=== PATIENT | female | born 1980 | race Caucasian/White ===

== ENCOUNTER 2024-04-15 21:36 | Emergency (ER) | payer BC, MEDICAID, SELFPAY ==
[2024-04-15 21:55] VITALS: BP 106/74; PULSE 87; RESP 16; TEMP 36.8; O2SAT 97; BMI 31.1
--- NOTE | 2024-04-16 00:12 | ED_ITS ---
Documented by User: PETER Arias 04/16/24 00:56 HPI - Headache General: Chief Complaint: Headache Stated Complaint: headaches Time Seen by Provider: 04/15/24 23:32 History of Present Illness: Patient is a 44-year-old female that presents to the emergency department with complaints of headache. Onset of symptoms approximately 1 month ago and has been working with primary care to try and improve her headaches. Patient notes use of Flexeril and tizanidine which does alter his headache but does not resolve it. Patient is also trialed Excedrin Migraine which has helped but does not resolve. Patient denies fever, chills, chest pain, shortness of breath. Related Data Allergies Allergy/AdvReac Type Severity Reaction Status Date / Time No Known Allergies Allergy Verified 04/15/24 22:03 Review of Systems General: Reports: 10 or more systems reviewed and unremarkable except in HPI and below Physical Exam Const: COMMON NORMALS: no acute distress, patient oriented x3 and alert GENERAL APPEARANCE: cooperative ORIENTATION/CONSCIOUSNESS: Yes awake, Yes oriented to person, Yes oriented to place and Yes oriented to time HENMT: COMMON NORMALS: normocephalic and atraumatic HEAD & SCALP: normocephalic and atraumatic FACE & SINUS: normal facial exam MOUTH: Normal oral and palatal mucosa present THROAT: posterior oropharynx normal Neck/C-Spine: COMMON NORMALS: full ROM GENERAL: Yes normal visual inspection Lymph: LYMPHATIC: no lymphadenopathy noted Chest: COMMONS NORMALS: normal inspection of the chest Breast/axilla inspection: Yes no chest deformity, asymmetry, normal contours, no nodules, masses, tenderness Resp: COMMON NORMALS: normal respiratory effort, No retractions and No use of accessory muscles EFFORT & INSPECTION: Yes able to speak in complete sentences and Yes symmetric chest movement Cardio: COMMON NORMALS: regular rate and Peripheral pulses 2+ throughout RATE: regular rate PERIPHERAL PULSES: Peripheral pulses 2+ throughout GI: COMMON NORMALS: Normal to inspection, nondistended, normoactive bowel sounds present INSPECTION: Yes normal to inspection RECTAL EXAM: deferred Extremity: COMMON NORMALS: normal to inspection GENERAL: Yes normal exam except as noted Neuro: COMMON NORMALS: patient oriented x3 SENSORIUM/ORIENTATION: Yes alert, Yes oriented to person, Yes oriented to place and Yes oriented to time CRANIAL NERVES: Yes CN normal except as noted Psych: COMMON NORMALS: mental status grossly normal, Normal thought process present, cooperative, activity/motor behavior normal, denies homicidal ideation and denies suicidal ideation THOUGHT PROCESS: Normal thought process present Skin: COMMON NORMALS: no rashes or lesions noted, no wounds and turgor normal GENERAL SKIN EXAM: no rashes or lesions noted and turgor normal Course Vital Signs: Vital signs: Vital Signs Temperature 98.3 F 04/15/24 21:55 Pulse Rate 87 04/15/24 21:55 Respiratory Rate 16 04/15/24 21:55 Blood Pressure 106/74 04/15/24 21:55 Pulse Oximetry 97 04/15/24 21:55 Oxygen Delivery Me thod Room Air 04/15/24 21:55 MDM - Headache Medical Decision Making Patient evaluated in the emergency department for complaints of migraine type headache. Has been treated with Flexeril and tizanidine without resolution. She did have some improvement in her headaches. Here in the emergency department she denies any head trauma. Symptoms have been ongoing for the last month. I opted to trial a drug cocktail for pain management that included ketorolac diphenhydramine and dexamethasone. At this time and transitioning care to Dr. Llanes. Patient has been prepped for discharge with headache and follow-up with primary care. However, if something changes or she does not improve she may need further medication management Lab Data Radiology Impressions Head CT 04/16/24 03:08 IMPRESSION: No acute intracranial abnormality. No radiology studies performed this visit Discharge Plan Discharge Patient Disposition: Home Clinical Impression: Headache Migraine Qualifiers: Migraine type: unspecified Status migrainosus presence: with status migrainosus Intractability: intractable Qualified Code(s): G43.911 - Migraine, unspecified, intractable, with status migrainosus Condition: Stable Discharge Orders: Discharge ED (Routine); Ordered 04/16/24 Ordered By: Conor Blanchard Discharge Diet: Advance as tolerated Discharge Activity: Resume usual activity Patient Instructions: Headache - Migraine (Adult), Pain Management Activity Restrictions/Additional Instructions: Please follow-up with your primary care doctor for ongoing headaches. Please return to the emergency department for new, concerning, worsening symptoms Sign Out Sign Out Data: Patient Sign Out occurred on 04/16/24 at 00:58. Patient's care was discussed, and care was transferred from PETER Arias to Juan Llanes MD. 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[employer] Documented by User: Juan Llanes MD 04/16/24 04:35 HPI - Headache General: Chief Complaint: Headache Stated Complaint: headaches Time Seen by Provider: 04/15/24 23:32 Related Data Allergies Allergy/AdvReac Type Severity Reaction Status Date / Time No Known Allergies Allergy Verified 04/15/24 22:03 Course Vital Signs: Vital signs: Vital Signs Temperature 98.3 F 04/15/24 21:55 Pulse Rate 87 04/15/24 21:55 Respiratory Rate 16 04/15/24 21:55 Blood Pressure 106/74 04/15/24 21:55 Pulse Oximetry 97 04/15/24 21:55 Oxygen Delivery Me thod Room Air 04/15/24 21:55 MDM - Headache Medical Decision Making Patient evaluated in the emergency department for complaints of migraine type headache. Has been treated with Flexeril and tizanidine without resolution. She did have some improvement in her headaches. Here in the emergency department she denies any head trauma. Symptoms have been ongoing for the last month. I opted to trial a drug cocktail for pain management that included ketorolac diphenhydramine and dexamethasone. At this time and transitioning care to Dr. Llanes. Patient has been prepped for discharge with headache and follow-up with primary care. However, if something changes or she does not improve she may need further medication management. CT scan done as patient was concerned about this why her headache was so bad. CT scan unremarkable. Given Imitrex and reevaluating prior to discharge. Differential Diagnosis Likely migraine, tension headache, headache and sinusitis Medical Records I reviewed the patient's medical records. Lab Data Radiology Impressions Head CT 04/16/24 03:08 IMPRESSION: No acute intracranial abnormality. All radiology interpretation(s) finalized by discharge ED provider radiology interpretation(s): Personally viewed CT of the head and I see no acute abnormality. Discharge Plan Discharge Patient Disposition: Home Clinical Impression: Headache Migraine Qualifiers: Migraine type: unspecified Status migrainosus presence: with status migrainosus Intractability: intractable Qualified Code(s): G43.911 - Migraine, unspecified, intractable, with status migrainosus Condition: Stable Discharge Orders: Discharge ED (Routine); Ordered 04/16/24 Ordered By: Conor Blanchard Discharge Diet: Advance as tolerated Discharge Activity: Resume usual activity Patient Instructions: Headache - Migraine (Adult), Pain Management Activity Restrictions/Additional Instructions: Please follow-up with your primary care doctor for ongoing headaches. Please return to the emergency department for new, concerning, worsening symptoms Sign Out Sign Out Data: Patient Sign Out occurred on 04/16/24 at 00:58. Patient's care was discussed, and care was transferred from PETER Arias to Juan Llanes MD. Coding Level of Care Code ED Information Security Officer for Arnol Segovia
[2024-04-16] MEDS: ketorolac 60 mg/2 mL INJ IM (00:38)
[2024-04-16] MEDS: dexamethasone 10 mg/mL INJ IM (00:39)
[2024-04-16] MEDS: diphenhydrAMINE 50 mg/mL SDV 1mL IM (00:39)
--- NOTE | 2024-04-16 03:08 | CTR_ITS ---
PROCEDURE INFORMATION: Exam: CT Head Without Contrast Exam date and time: 04/16/2024 3:25 AM Age: 44 years old Clinical indication: Pain; Headache; Patient HX: Severe migraine; Additional info: Severe intractable PRASAD TECHNIQUE: Imaging protocol: Computed tomography of the head without contrast. Radiation optimization: All CT scans at this facility use at least one of these dose optimization techniques: automated exposure control; mA and/or kV adjustment per patient size (includes targeted exams where dose is matched to clinical indication); or iterative reconstruction. COMPARISON: No relevant prior studies available. RADIATION DOSE METRICS: Total DLP (mGy-cm): 992.99 FINDINGS: Brain: Normal. No hemorrhage. Unremarkable white matter. No mass effect. Cerebral ventricles: No ventriculomegaly. Paranasal sinuses: Visualized sinuses are unremarkable. No fluid levels. Mastoid air cells: Visualized mastoid air cells are well aerated. Bones: Unremarkable. No acute fracture. Soft tissues: Unremarkable. CT/CT head wo con* [id number] IMPRESSION: No acute intracranial abnormality.
[2024-04-16] MEDS: SUMAtriptan 6 mg/0.5 mL SDV SUBCUT (03:53)
== END 2024-04-16 04:40 | disposition home or self-care (01) ==
PROVIDERS: Emergency Provider Emergency Medicine
DX: G43.911 Migraine, unspecified, intractable, with status migrainosus (principal)
CPT/HCPCS: 70450; 96372; 99284; J1100; J1200; J1885; J3030

== ENCOUNTER 2024-04-21 16:22 | Emergency (ER) | payer BC, MEDICAID, SELFPAY ==
[2024-04-21 16:29] VITALS: BP 135/89; PULSE 78; RESP 14; TEMP 36.6; O2SAT 98
--- NOTE | 2024-04-21 21:34 | ED_ITS ---
Documented by User: DEDRA Akbar 04/21/24 23:10 HPI - Headache 2 General: Chief Complaint: Headache Stated Complaint: migraines Time Seen by Provider: 04/21/24 20:19 Source: patient Mode of arrival: ambulatory Limitations: no limitations History of Present Illness: Patient is a 44-year-old female who presents to the emergency department for the second time a week for continued headaches. She received cocktail of medications to treat her headache, she states that this worked last time but effects wore off. She also had a head CT that was unremarkable for any acute findings. She states she has not seen primary care in 25 years, however is set to see a new established doctor next Wednesday but wanted to get checked out again because the pain was getting worse. She states that she took a muscle relaxer to try to help her pain, but that this made it much worse. Notes that intermittently over the past year or so she has had intermittent swelling of her forehead, painless, and it goes away on its own. She has never gotten this checked out. She reports currently that the headache is behind her left eye and radiates to the top of her head, has never seen neurology and has no diagnosis of migraine. She does not take any medications. States that she looked up online what to cause the pain, and found that it could be from dental implants of which she had placed within the past few months. No focal neurological deficits, no gait disturbances, no other concerns noted at this time. Her vitals are unremarkable. MD elicited complaint: headache Onset (ago): day(s) Onset description: suddenly Location: left and retro-orbital Severity: similar to previous episodes Exacerbating factors: other (Medication) Relieving factors: nothing Context: occurred at rest Associated symptoms: Reports no associated symptoms; Deny chest pain, fever(s), lightheadedness, nausea, rash or vomiting Treatments prior to arrival: other (Muscle relaxer) Related Data Allergies Allergy/AdvReac Type Severity Reaction Status Date / Time No Known Allergies Allergy Verified 04/21/24 16:38 Review of Systems 2 General: Reports: 10 or more systems reviewed and unremarkable except in HPI and below Const: Denies: fever(s), chills or fatigue Eyes: Denies: change in vision or blurry vision ENMT: Denies: throat pain, ear or mastoid pain or nasal discharge Card: Denies: chest pain, palpitations, swelling of feet/ankles or lightheadedness Resp: Denies: dyspnea, productive cough or wheezing GI: Denies: abdominal pain, nausea, vomiting, diarrhea or constipation : Denies: flank pain, difficulty voiding, dysuria or urinary frequency Musc: Denies: neck pain, back pain or joint pain Skin/Breast: Denies: rash Neuro: Reports: headache(s); Denies: numbness in extremities, weakness in extremities, sensory changes, difficulty walking, dizziness or behavioral changes [facility] ED 2 Female Reproductive History: Date of last menstrual period: 03/22/24 Physical Exam 2 Const: COMMON NORMALS: no acute distress, patient oriented x3 and no limitations GENERAL APPEARANCE: cooperative, well developed and anxious O RIENTATION/CONSCIOUSNESS: Yes awake, Yes oriented to person, Yes oriented to place and Yes oriented to time HENMT: COMMON NORMALS: normocephalic, atraumatic, hearing grossly normal bilaterally and moist oral mucous membranes HEAD & SCALP: normocephalic and atraumatic OTHER: Dental implants without any acute sign of infection. Chronic appearing cystic lesions scattered on patient's scalp Eye: COMMON NORMALS: Equal, round and reactive pupils present, EOMs intact bilaterally and conjunctivae normal CONJUNCTIVA: Yes conjunctivae normal P UPIL: Yes Equal, round and reactive pupils present Neck/C-Spine: COMMON NORMALS: full ROM, supple and no JVD Resp: COMMON NORMALS: normal respiratory effort, No retractions, No use of accessory muscles and clear to auscultation bilaterally AUSCULTATION: clear to auscultation bilaterally Cardio: COMMON NORMALS: no JVD, regular rate, regular rhythm, No clicks present (Cardio), No murmurs present (Cardio) and No rub (Cardio) RATE: r egular rate RHYTHM: regular rhythm GI: COMMON NORMALS: Normal to inspection, nondistended, normoactive bowel sounds present, Soft to palpation and non-tender AUSCULTATION: Yes normoactive bowel sounds PALPATION: Yes Soft to palpation RECTAL EXAM: d eferred Extremity: COMMON NORMALS: normal to inspection, full ROM and capillary refill normal Neuro: COMMON NORMALS: patient oriented x3, CN's II-XII intact bilaterally, moves all extremities, no focal motor deficits and no sensory deficits noted SENSORIUM/ORIENTATION: Yes oriented to person, Yes oriented to place and Yes oriented to time Psych: COMMON NORMALS: mental status grossly normal and Normal thought process present THOUGHT PROCESS: Normal thought process present Skin: COMMON NORMALS: no rashes or lesions noted GENERAL SKIN EXAM: no rashes or lesions noted Course 2 Vital Signs: Vital signs: Vital Signs Temperature 97.9 F 04/21/24 16:29 Pulse Rate 83 04/21/24 23:20 Respiratory Rate 16 04/21/24 22:41 Blood Pressure 127/82 04/21/24 23:20 Pulse Oximetry 97 04/21/24 23:20 Oxygen Delivery Me thod Room Air 04/21/24 22:41 MDM - Headache Medical Decision Making Patient presented with this examiner week for similar headache that she had prior appearance. She wanted medications again, also 1 to make sure there is no infection with blood work. Blood was negative, no need to repeat CT scan as she just had a normal one. Neurologically was intact, will refer her to neurology for further evaluation as she has continued headaches, she may benefit from an MRI. She has follow-up appoint with primary care next week, she is feeling better after medications here and is comfortable with discharge home. Return precautions given. Lab Data 04/21/24 21:56 04/21/24 21:56 Laboratory Results WBC 10.41 10^3/uL (3.29-11.43) 04/21/24 21:56 RBC 4.40 10^6/uL (3.85-5.65) 04/21/24 21:56 Hgb 13.60 g/dL (11.27-16.99) 04/21/24 21:56 Hct 40.3 % (36-47) 04/21/24 21:56 MCV 91.6 fl (85-98) 04/21/24 21:56 MCH 30.9 pg (27-33) 04/21/24 21:56 MCHC 33.7 g/dL (30-55) 04/21/24 21:56 RDW 12.1 % (12.1-15.1) 04/21/24 21:56 Plt Count 237 10^3/cmm (157-399) 04/21/24 21:56 MPV 11.4 fL (7.4-10.4) H 04/21/24 21:56 Neut % (Auto) 60.1 % 04/21/24 21:56 Lymph % (Auto) 30.8 % 04/21/24 21:56 Wolfe % (Auto) 7.3 % 04/21/24 21:56 Eos % (Auto) 1.3 % 04/21/24 21:56 Baso % (Auto) 0.2 % 04/21/24 21:56 Neut # (Auto) 6.25 10^3/uL (1.8-7.7) 04/21/24 21:56 Lymph # (Auto) 3.2 10^3/uL (0.8-4.8) 04/21/24 21:56 Wolfe # (Auto) 0.8 10^3/uL (0.2-0.9) 04/21/24 21:56 Eos # (Auto) 0.1 10^3/uL (0.0-0.8) 04/21/24 21:56 Baso # (Auto) 0.0 10^3/uL (0.0-0.1) 04/21/24 21:56 Nucleated RBC % (auto) 0 % 04/21/24 21:56 Nucleated RBCs # 0.0 /100WBC 04/21/24 21:56 Sodium 138 mmol/L (136-145) 04/21/24 21:56 Potassium 4.3 mmol/L (3.5-5.1) 04/21/24 21:56 Chloride 102 mmol/L (98-107) 04/21/24 21:56 Carbon Dioxide 26 mmol/L (22-29) 04/21/24 21:56 Anion Gap 14.3 (5-19) 04/21/24 21:56 BUN 9 mg/dL (6-20) 04/21/24 21:56 Creatinine 0.6 mg/dL (0.5-0.9) 04/21/24 21:56 GFR Calculation 109.1 mL/min (90-130) 04/21/24 21:56 Glucose 105 mg/dL (65-115) 04/21/24 21:56 Calculated Osmolality 285 mOsm/kg (285-295) 04/21/24 21:56 Calcium 9.7 mg/dL (8.5-10.5) 04/21/24 21:56 Total Bilirubin 0.3 mg/dL (0.15-1.2) 04/21/24 21:56 AST 11 U/L (0-32) 04/21/24 21:56 ALT 11 U/L (0-33) 04/21/24 21:56 Alkaline Phosphatase 57 U/L (35-105) 04/21/24 21:56 Total Protein 7.0 g/dL (6.6-8.7) 04/21/24 21:56 Albumin 4.4 g/dL (3.5-5.2) 04/21/24 21:56 Globulin 2.6 g/dL (1.3-4.6) 04/21/24 21:56 No radiology studies performed this visit Discharge Plan Discharge Patient Disposition: Home Clinical Impression: Headache Qualifiers: Headache type: unspecified Headache chronicity pattern: episodic headache I ntractability: intractable Qualified Code(s): R51.9 - Headache, unspecified Condition: Stable Discharge Orders: Discharge ED (Routine); Ordered 04/21/24 Ordered By: Anderson Parada Activity Restrictions/Additional Instructions: Please follow-up with neurology. Also follow-up with primary care next week as planned. Return with any neurological symptoms or other concerns you have. 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 Documented by User: Facundo Kimble DO 04/22/24 06:50 HPI - Headache 2 General: Chief Complaint: Headache Stated Complaint: migraines Time Seen by Provider: 04/21/24 20:19 Related Data Allergies Allergy/AdvReac Type Severity Reaction Status Date / Time No Known Allergies Allergy Verified 04/21/24 16:38 Course 2 Vital Signs: Vital signs: Vital Signs Temperature 97.9 F 04/21/24 16:29 Pulse Rate 83 04/21/24 23:20 Respiratory Rate 16 04/21/24 22:41 Blood Pressure 127/82 04/21/24 23:20 Pulse Oximetry 97 04/21/24 23:20 Oxygen Delivery Me thod Room Air 04/21/24 22:41 MDM - Headache Medical Decision Making Patient presented with this examiner week for similar headache that she had prior appearance. She wanted medications again, also 1 to make sure there is no infection with blood work. Blood was negative, no need to repeat CT scan as she just had a normal one. Neurologically was intact, will refer her to neurology for further evaluation as she has continued headaches, she may benefit from an MRI. She has follow-up appoint with primary care next week, she is feeling better after medications here and is comfortable with discharge home. Return precautions given. Chart reviewed Lab Data 04/21/24 21:56 04/21/24 21:56 Laboratory Results WBC 10.41 10^3/uL (3.29-11.43) 04/21/24 21:56 RBC 4.40 10^6/uL (3.85-5.65) 04/21/24 21:56 Hgb 13.60 g/dL (11.27-16.99) 04/21/24 21:56 Hct 40.3 % (36-47) 04/21/24 21:56 MCV 91.6 fl (85-98) 04/21/24 21:56 MCH 30.9 pg (27-33) 04/21/24 21:56 MCHC 33.7 g/dL (30-55) 04/21/24 21:56 RDW 12.1 % (12.1-15.1) 04/21/24 21:56 Plt Count 237 10^3/cmm (157-399) 04/21/24 21:56 MPV 11.4 fL (7.4-10.4) H 04/21/24 21:56 Neut % (Auto) 60.1 % 04/21/24 21:56 Lymph % (Auto) 30.8 % 04/21/24 21:56 Wolfe % (Auto) 7.3 % 04/21/24 21:56 Eos % (Auto) 1.3 % 04/21/24 21:56 Baso % (Auto) 0.2 % 04/21/24 21:56 Neut # (Auto) 6.25 10^3/uL (1.8-7.7) 04/21/24 21:56 Lymph # (Auto) 3.2 10^3/uL (0.8-4.8) 04/21/24 21:56 Wolfe # (Auto) 0.8 10^3/uL (0.2-0.9) 04/21/24 21:56 Eos # (Auto) 0.1 10^3/uL (0.0-0.8) 04/21/24 21:56 Baso # (Auto) 0.0 10^3/uL (0.0-0.1) 04/21/24 21:56 Nucleated RBC % (auto) 0 % 04/21/24 21:56 Nucleated RBCs # 0.0 /100WBC 04/21/24 21:56 Sodium 138 mmol/L (136-145) 04/21/24 21:56 Potassium 4.3 mmol/L (3.5-5.1) 04/21/24 21:56 Chloride 102 mmol/L (98-107) 04/21/24 21:56 Carbon Dioxide 26 mmol/L (22-29) 04/21/24 21:56 Anion Gap 14.3 (5-19) 04/21/24 21:56 BUN 9 mg/dL (6-20) 04/21/24 21:56 Creatinine 0.6 mg/dL (0.5-0.9) 04/21/24 21:56 GFR Calculation 109.1 mL/min (90-130) 04/21/24 21:56 Glucose 105 mg/dL (65-115) 04/21/24 21:56 Calculated Osmolality 285 mOsm/kg (285-295) 04/21/24 21:56 Calcium 9.7 mg/dL (8.5-10.5) 04/21/24 21:56 Total Bilirubin 0.3 mg/dL (0.15-1.2) 04/21/24 21:56 AST 11 U/L (0-32) 04/21/24 21:56 ALT 11 U/L (0-33) 04/21/24 21:56 Alkaline Phosphatase 57 U/L (35-105) 04/21/24 21:56 Total Protein 7.0 g/dL (6.6-8.7) 04/21/24 21:56 Albumin 4.4 g/dL (3.5-5.2) 04/21/24 21:56 Globulin 2.6 g/dL (1.3-4.6) 04/21/24 21:56 Discharge Plan Discharge Patient Disposition: Home Clinical Impression: Headache Qualifiers: Headache type: unspecified Headache chronicity pattern: episodic headache I ntractability: intractable Qualified Code(s): R51.9 - Headache, unspecified Condition: Stable Discharge Orders: Discharge ED (Routine); Ordered 04/21/24 Ordered By: Anderson Parada Activity Restrictions/Additional Instructions: Please follow-up with neurology. Also follow-up with primary care next week as planned. Return with any neurological symptoms or other concerns you have. 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
[2024-04-21 22:02] LABS: Basophils % 0.2 %; Eosinophils # 0.1 10^3/uL (0.0-0.8); Eosinophils % 1.3 %; Hematocrit 40.3 % (36-47); Lymphocytes # 3.2 10^3/uL (0.8-4.8); Lymphocytes % 30.8 %; Mean Corpuscular HGB Conc 33.7 g/dL (30-55); Mean Corpuscular Hemoglobin 30.9 pg (27-33); Mean Corpuscular Volume 91.6 fl (85-98); Mean Platelet Volume 11.4 fL (7.4-10.4); Monocytes # 0.8 10^3/uL (0.2-0.9); Monocytes % 7.3 %; Neutrophils # 6.25 10^3/uL (1.8-7.7); Neutrophils % 60.1 %; Nucleated Red Blood Cells % 0 %; Platelet Count 237 10^3/cmm (157-399); Red Cell Distribution Width 12.1 % (12.1-15.1); White Blood Count 10.41 10^3/uL (3.29-11.43)
[2024-04-21] MEDS: sodium chloride 0.9% 1,000 ML 999 ML IV (22:10)
[2024-04-21] MEDS: ondansetron 2 mg/ML SDV 2 mL 8 MG IVP (22:11)
[2024-04-21] MEDS: dexamethasone 10 mg/mL INJ IVP (22:13)
[2024-04-21] MEDS: diphenhydrAMINE 50 mg/mL SDV 1mL IVP (22:15)
[2024-04-21] MEDS: ketorolac 60 mg/2 mL INJ 30 MG IVP (22:17)
[2024-04-21 22:19] VITALS: BP 136/87; PULSE 61; RESP 14; O2SAT 99
[2024-04-21 22:25] LABS: Alanine Aminotransferase 11 U/L (0-33); Albumin Level 4.4 g/dL (3.5-5.2); Alkaline Phosphatase 57 U/L (35-105); Anion Gap 14.3 (5-19); Aspartate Amino Transferase 11 U/L (0-32); Blood Urea Nitrogen 9 mg/dL (6-20); Calcium 9.7 mg/dL (8.5-10.5); Carbon Dioxide 26 mmol/L (22-29); Chloride 102 mmol/L (98-107); Globulin 2.6 g/dL (1.3-4.6); Glomerular Filtration Rate 109.1 mL/min (90-130); Glucose 105 mg/dL (65-115); Osmolality Calculated 285 mOsm/kg (285-295); Potassium 4.3 mmol/L (3.5-5.1); Sodium 138 mmol/L (136-145); Total Bilirubin 0.3 mg/dL (0.15-1.2)
[2024-04-21 22:41] VITALS: BP 108/64; PULSE 63; RESP 16; O2SAT 99
[2024-04-21 23:20] VITALS: BP 127/82; PULSE 83; O2SAT 97
--- NOTE | 2024-04-24 07:25 | DCPLANNER ---
messaged neurology for er f/u
== END 2024-04-21 23:22 | disposition home or self-care (01) ==
PROVIDERS: Emergency Provider Physician Assistant
DX: R51.9 Headache, unspecified (principal)
CPT/HCPCS: 80053; 85025; 96374; 96375; 99284; J1100; J1200; J1885; J2405; J7030

== ENCOUNTER 2024-05-24 10:17 | Outpatient (CLI) | payer BC, MEDICAID, SELFPAY ==
--- NOTE | 2024-05-24 10:20 | MM_ITS ---
WS: [id number] SCREENING DIGITAL BREAST TOMOSYNTHESIS MAMMOGRAM WITH CAD HISTORY: SCREENING COMPARISON: None available. Bilateral CC and MLO with tomosynthesis and synthetic mammography submitted. Computer aided detection analyzed. Breast composition: There are scattered areas of fibroglandular density. Well- circumscribed mass measuring 6 x 7 x 10 mm in the lateral LEFT breast at 3:00, middle depth. No additional suspicious masses or calcifications. MM/MM scr tomosynthesis [id number] IMPRESSION: BI-RADS: 0 - Incomplete: Need additional imaging evaluation. FOLLOW UP: Need Additional Imaging Recommendation: LEFT breast ultrasound, limited. LEFT breast 2-4 o'clock.
== END 2024-05-24 10:18 | disposition home or self-care (01) ==
LOC: MOBLMAM 10:19
PROVIDERS: PCP Advanced Practice Midwife; Visit Provider Advanced Practice Midwife
DX: Z12.31 Encounter for screening mammogram for malignant neoplasm of breast (principal); R92.323 Mammographic fibroglandular density, bilateral breasts; N63.25 Unspecified lump in the left breast, overlapping quadrants
CPT/HCPCS: 77063; 77067